=== PATIENT | female | born 1970 | race Caucasian/White ===

== ENCOUNTER 2020-11-10 13:27 | Outpatient (CLI) | payer BC ==
--- NOTE | 2020-11-10 13:55 | RAD ---
XR Cerv Sp Ap Lat STANDARD: 11/10/2020 1:44 PM CLINICAL HISTORY: Cervicalgia and right arm weakness COMPARISON: None Bones: Bone mineralization appears within normal limits. No acute fractures evident. Intervertebral disc spaces and facet complexes: There is [id number] disc degenerative disease a t C5-6. There is mild multilevel facet osteoarthrosis. Spinal alignment: Within normal limits. Prevertebral soft tissues: Normal. Lateral masses: Symmetric. Lung apices: Clear. Additional findings: None. IMPRESSION: Mild cervical spondylosis.
== END 2020-11-10 13:28 | disposition home or self-care (01) ==
LOC: BICRAD 13:27
PROVIDERS: ATTEND Family Medicine
DX: M54.2 Cervicalgia (principal); G89.29 Other chronic pain; M62.838 Other muscle spasm; R29.898 Other symptoms and signs involving the musculoskeletal system; R20.0 Anesthesia of skin; M47.812 Spondylosis without myelopathy or radiculopathy, cervical region
CPT/HCPCS: 72040